=== PATIENT | female | born 1965 | race Caucasian/White ===

== ENCOUNTER 2018-01-25 15:14 | Outpatient (CLI) | payer OTHER ==
[2015-12-09 12:22] VITALS: BP 104/75
--- NOTE | 2018-01-25 18:17 | Diagnostic Imaging Report ---
LEONARD SHARPE [facility] [id number] [id number] Report Submission Date: Jan 25, 2018 4:03:49 PM CDT Patient Study Name: DAVEY CARBAJAL Date: Jan 25, 2018 3:18:10 PM CDT Modality Type: DX Gender: F Description: UPPER EXTREMITY : 63 Institution: [facility] Physician: LEONARD SHARPE Left wrist, 3 views History: Wrist pain Findings: There is no fracture, dislocation or abnormal bone destruction. There is no gross evidence of soft tissue abnormality. There is no opaque retained foreign body. Impression: Normal. Electronically signed on Jan 25, 2018 4:03:49 PM CDT by: Elian GRANADOS
== END 2018-01-25 15:16 ==
LOC: RAD 15:14
PROVIDERS: ATTEND Pediatrics
DX: M25.532 Pain in left wrist (principal)
CPT/HCPCS: 73110